=== PATIENT | female | born 1995 | race Caucasian/White ===

== ENCOUNTER 2017-12-15 01:23 | Emergency (ER) | payer OTHER ==
[~2017-12-15] VITALS: Ht 154.9 cm; Wt 99.8 kg
[~2017-12-15 01:23] MED LIST: COL100 PO; FLE10 PO; IMITREX25 MG PO; LEVOTHYROXINE0.05 M2 PO; MASON NATURAL1000 IU PO; SERTRALINE50 M1 PO; XANAX0.5 MG PO
[2017-12-15 01:34] VITALS: Ht 154.9 cm; Wt 99.8 kg
[2017-12-15 03:23] LABS: CALCIUM 8.4 mg/dL (8.5-10.1); CHLORIDE SERUM 106 mmol/L (98-107); CREATININE SERUM 0.6 mg/dL (0.6-1.0); GFR1 > 60 mL/min; GLUCOSE SERUM 112 mg/dL (74-106); POTASSIUM SERUM 3.6 mmol/L (3.5-5.1); SODIUM SERUM 137 mmol/L (136-145)
[2017-12-15 03:34] LABS: BASOPHIL % 0.7 % (0-2); PLATELET COUNT 282 x10^3mcL (130-400); RED CELL DISTRIBUTION WIDTH 14.3 % (11.5-14.5)
[2017-12-15 03:35] LABS: ALKALINE PHOSPHATASE 89 U/L (46-116); ALT/SGPT 22 U/L (14-59); AST/SGOT 17 U/L (15-37); BILIRUBIN TOTAL 0.67 mg/dL (0.20-1.00); CHOLESTEROL 136 mg/dL (<200); HDL CHOLESTEROL 41 mg/dL (40-60); LIPASE 60 IU/L (73-393); TOTAL PROTEIN, SERUM 6.4 g/dL (6.4-8.2)
[2017-12-15 03:37] LABS: ALBUMIN 2.8 g/dL (3.4-5.0)
[2017-12-15 05:39] VITALS: BP 114/57
== END 2017-12-15 06:05 | disposition home or self-care (01) ==
LOC: ED 01:23
PROVIDERS: Emergency Medicine
DX: R55 Syncope and collapse (principal); R42 Dizziness and giddiness; R11.2 Nausea with vomiting, unspecified; J45.909 Unspecified asthma, uncomplicated; E03.9 Hypothyroidism, unspecified; Z88.6 Allergy status to analgesic agent; Z88.5 Allergy status to narcotic agent
CPT/HCPCS: 83880; 85378; J7030; Q0092; Q0162

== ENCOUNTER 2017-12-29 06:25 | Emergency (ER) | payer OTHER ==
[~2017-12-29] VITALS: Ht 154.9 cm; Wt 95.2 kg
[2017-12-29 06:28] VITALS: Ht 154.9 cm; Wt 95.2 kg
[2017-12-29 07:12] LABS: PLATELET COUNT 334 x10^3mcL (130-400); RED CELL DISTRIBUTION WIDTH 14.4 % (11.5-14.5)
[2017-12-29 07:29] LABS: CALCIUM 9.2 mg/dL (8.5-10.1); CARBON DIOXIDE 24.7 mmol/L (21-32); CHLORIDE SERUM 104 mmol/L (98-107); CREATININE SERUM 0.7 mg/dL (0.6-1.0); GFR1 > 60 mL/min; GLUCOSE SERUM 112 mg/dL (74-106); POTASSIUM SERUM 3.9 mmol/L (3.5-5.1); SODIUM SERUM 140 mmol/L (136-145)
[2017-12-29 07:33] LABS: ALKALINE PHOSPHATASE 134 U/L (46-116); ALT/SGPT 22 U/L (14-59); AMYLASE 43 U/L (25-115); AST/SGOT 18 U/L (15-37); BILIRUBIN TOTAL 0.12 mg/dL (0.20-1.00); LIPASE 77 IU/L (73-393); TOTAL PROTEIN, SERUM 7.1 g/dL (6.4-8.2)
[2017-12-29 07:35] LABS: ALBUMIN 3.2 g/dL (3.4-5.0)
[2017-12-29 07:58] LABS: microscopic required? YES; urine erythrocyte TRACE (NEGATIVE)
[2017-12-29 09:57] VITALS: BP 114/72
== END 2017-12-29 09:57 | disposition home or self-care (01) ==
LOC: ED 06:25
PROVIDERS: Specialist
DX: N39.0 Urinary tract infection, site not specified (principal); J45.909 Unspecified asthma, uncomplicated; E03.9 Hypothyroidism, unspecified; G43.909 Migraine, unspecified, not intractable, without status migrainosus
CPT/HCPCS: 83880; J0780; J1885; J3010; J7030

== ENCOUNTER 2018-02-02 17:46 | Emergency (ER) | payer OTHER ==
[~2018-02-02] VITALS: Ht 154.9 cm; Wt 103.0 kg
[2018-02-02 17:59] VITALS: Ht 154.9 cm; Wt 103.0 kg
[2018-02-02 20:19] VITALS: BP 122/56
== END 2018-02-02 20:27 | disposition home or self-care (01) ==
LOC: ED 17:46
DX: K80.50 Calculus of bile duct without cholangitis or cholecystitis without obstruction (principal); J45.909 Unspecified asthma, uncomplicated; E03.9 Hypothyroidism, unspecified; Z88.5 Allergy status to narcotic agent; Z88.6 Allergy status to analgesic agent
CPT/HCPCS: J1885; J3010; J8597

== ENCOUNTER 2018-06-02 17:52 | Emergency (ER) | payer OTHER ==
[~2018-06-02] VITALS: Ht 154.9 cm; Wt 102.5 kg
[2018-06-02 18:03] VITALS: Ht 154.9 cm; Wt 102.5 kg
[2018-06-02 20:25] VITALS: BP 125/88
== END 2018-06-02 20:25 | disposition home or self-care (01) ==
LOC: ED 17:52
DX: T78.1XXA Other adverse food reactions, not elsewhere classified, initial encounter (principal); J45.909 Unspecified asthma, uncomplicated; G43.909 Migraine, unspecified, not intractable, without status migrainosus; F41.9 Anxiety disorder, unspecified; F32.9 Major depressive disorder, single episode, unspecified; Z88.6 Allergy status to analgesic agent; Z88.5 Allergy status to narcotic agent; X58.XXXA Exposure to other specified factors, initial encounter
CPT/HCPCS: J7512

== ENCOUNTER 2020-09-14 03:43 | Emergency (ER) | payer OTHER ==
[~2020-09-14] VITALS: Ht 154.9 cm; Wt 127.0 kg
[2020-09-14 03:51] VITALS: Ht 154.9 cm; Wt 127.0 kg
[2020-09-14 04:33] LABS: BASOPHIL % 1.1 % (0.2-1.3); PLATELET COUNT 301 x10^3mcL (179-408)
[2020-09-14 04:34] LABS: RED CELL DISTRIBUTION WIDTH 14.7 % (12.3-17.7)
[2020-09-14 04:52] LABS: CALCIUM 8.7 mg/dL (8.5-10.1); CARBON DIOXIDE 26.4 mmol/L (21-32); CHLORIDE SERUM 107 mmol/L (98-107); CREATININE SERUM 0.7 mg/dL (0.6-1.0); GFR1 > 60 mL/min; GLUCOSE SERUM 107 mg/dL (74-106); SODIUM SERUM 144 mmol/L (136-145)
[2020-09-14 04:57] LABS: ALBUMIN 3.6 g/dL (3.4-5.0); ALKALINE PHOSPHATASE 118 U/L (46-116); ALT/SGPT 32 U/L (14-59); AST/SGOT 18 U/L (15-37); BILIRUBIN TOTAL 0.18 mg/dL (0.20-1.00); LIPASE 56 IU/L (73-393); TOTAL PROTEIN, SERUM 7.4 g/dL (6.4-8.2)
[2020-09-14 05:07] LABS: rbc morphology (normal/abnorm) NORMAL (NORMAL)
[2020-09-14 09:31] VITALS: BP 123/78
== END 2020-09-14 09:31 | disposition home or self-care (01) ==
LOC: ED 03:43
PROVIDERS: Emergency Medicine
DX: K29.20 Alcoholic gastritis without bleeding (principal); J45.909 Unspecified asthma, uncomplicated; E03.9 Hypothyroidism, unspecified; G43.909 Migraine, unspecified, not intractable, without status migrainosus; Z88.5 Allergy status to narcotic agent; Z88.8 Allergy status to other drugs, medicaments and biological substances
CPT/HCPCS: Q0162